=== PATIENT | male | born 1950 | race American Indian/Alaskan Native ===

== ENCOUNTER 2017-09-21 18:41 | Emergency (ER) | payer MEDICARE ==
[2017-09-21 18:42] VITALS: BMI 27.3
[2017-09-21 19:25] VITALS: BP 150/80; PULSE 80; RESP 18; TEMP 99.1; O2SAT 98
--- NOTE | 2017-09-21 19:29 | C.PDOC ---
History Of Present Illness Patient presents to the ER with a complaint of a dry cough and post nasal drip. Patient states he feels the same way he felt last year when he had bronchitis. Denies fever, chills, nausea, or vomiting. Time Seen by Provider: 09/21/17 19:28 Chief Complaint (Nursing): Cough, Cold, Congestion History Per: Patient History/Exam Limitations: no limitations Onset/Duration Of Symptoms: Days Location Of Pain: None Associated Symptoms: denies: Fever, Chills, Nausea, Vomiting Ear Symptoms: Bilateral: None Severity: Mild Pain Scale Rating Of: 2 Recent travel outside of the [place]: No Past Medical History Reviewed: Historical Data, Nursing Documentation, Vital Signs Vital Signs: Last Vital Signs Temp 99.1 F 09/21/17 19:21 Pulse 80 09/21/17 19:21 Resp 18 09/21/17 19:21 BP 150/80 09/21/17 19:21 Pulse Ox 98 09/21/17 19:47 - Medical History PMH: Bronchitis (2014), HTN (not on meds) Surgical History: Endoscopy Family History: States: No Known Family Hx - Social History Hx Tobacco Use: No Hx Alcohol Use: No Hx Substance Use: No - Immunization History Hx Tetanus Toxoid Vaccination: No Hx Influenza Vaccination: No Hx Pneumococcal Vaccination: No Review Of Systems Constitutional: Negative for: Fever, Chills ENT: Positive for: Other (Post nasal drip) Respiratory: Positive for: Cough. Negative for: Sputum Gastrointestinal: Negative for: Nausea, Vomiting Physical Exam - Physical Exam Appears: Non-toxic, No Acute Distress Skin: Warm, Dry Head: Normacephalic Ear(s): Bilateral: Normal Oral Mucosa: Moist Throat: No Erythema, No Exudate Chest: Symmetrical, No Tenderness Cardiovascular: Rhythm Regular Respiratory: No Rales, Rhonchi (Scattered), No Wheezing Gastrointestinal/Abdominal: Soft, No Tenderness Neurological/Psych: Oriented x3 ED Course And Treatment O2 Sat by Pulse Oximetry: 98 (Room air) Pulse Ox Interpretation: Normal Progress Note: Zithromax administered. Disposition Counseled Patient/Family Regarding: Studies Performed, Diagnosis - Disposition Referrals: Oracio Brewer MD, PhD [Primary Care Provider] - Disposition: HOME/ ROUTINE Disposition Time: 19:29 Condition: FAIR Prescriptions: Albuterol HFA [Ventolin HFA 90 mcg/actuation (8 g)] 2 puff IH [id number] #1 puff Azithromycin [Zithromax Tri-Ricky] 500 mg PO DAILY #3 tablet Instructions: Upper Respiratory Infection (ED) Forms: [email or web address] (Turkish) - Clinical Impression Clinical Impression: Upper respiratory infection - Scribe Statement The provider has reviewed the documentation as recorded by the Scribe Jesus Montalvo All medical record entries made by the Scribe were at my direction and personally dictated by me. I have reviewed the chart and agree that the record accurately reflects my personal performance of the history, physical exam, medical decision making, and the department course for this patient. I have also personally directed, reviewed, and agree with the discharge instructions and disposition.
== END 2017-09-21 20:00 | disposition home or self-care (01) ==
LOC: SUPCPDRO 18:41 → C.ER 18:41
DX: J06.9 Acute upper respiratory infection, unspecified (principal); I10 Essential (primary) hypertension

== ENCOUNTER 2017-10-13 09:14 | Emergency (ER) | payer MEDICARE ==
[2017-10-13 09:14] VITALS: BMI 27.3
[2017-10-13 09:26] VITALS: BP 132/72; PULSE 78; RESP 18; TEMP 98.3; O2SAT 99
--- NOTE | 2017-10-13 10:03 | C.PDOC ---
History Of Present Illness Pt c/o left periorbital swelling. Denies trauma. Time Seen by Provider: 10/13/17 09:28 Chief Complaint (Nursing): Eye Problem History Per: Patient Onset/Duration Of Symptoms: Days (3) Current Symptoms Are (Timing): Still Present Injury To Eye?: No Severity: Moderate Quality: Other (swelling) Associated Symptoms: Swelling, Discharge From Eye (watery). denies: Pain, Decreased Vision, FB Sensation Additional History Per: Prior Records Past Medical History Reviewed: Historical Data, Nursing Documentation, Vital Signs Vital Signs: Last Vital Signs Temp 98.3 F 10/13/17 09:23 Pulse 78 10/13/17 09:23 Resp 18 10/13/17 09:23 BP 132/72 10/13/17 09:23 Pulse Ox 99 10/13/17 09:23 - Medical History PMH: Bronchitis (2014), HTN (not on meds) Surgical History: Endoscopy Family History: States: Unknown Family Hx - Social History Hx Tobacco Use: No Hx Alcohol Use: No Hx Substance Use: No - Immunization History Hx Tetanus Toxoid Vaccination: No Hx Influenza Vaccination: No Hx Pneumococcal Vaccination: No Review Of Systems Except As Marked, All Systems Reviewed And Found Negative. Constitutional: Negative for: Fever, Weakness Eyes: Negative for: Pain, Vision Change, Conjunctivae Inflammation, Redness ENT: Negative for: Ear Pain, Nose Discharge, Nose Congestion, Throat Pain Cardiovascular: Negative for: Chest Pain Respiratory: Negative for: Cough Gastrointestinal: Negative for: Vomiting, Abdominal Pain Musculoskeletal: Negative for: Neck Pain Skin: Negative for: Rash Neurological: Negative for: Weakness, Numbness, Headache Physical Exam - Physical Exam Appears: Non-toxic, No Acute Distress Skin: Normal Color, Warm, Dry, No Rash Head: Atraumatic, Normacephalic Eye(s): bilateral: PERRL, EOMI, right: Normal Inspection, left: Other (mild holly -orbital edema) Neck: Normal ROM, Supple Lymphatic: No Adenopathy Extremity: Normal ROM Neurological/Psych: Oriented x3, Normal Speech, Normal Cognition, Normal Cranial Nerves, Normal Motor, Normal Sensation ED Course And Treatment O2 Sat by Pulse Oximetry: 99 Pulse Ox Interpretation: Normal Disposition Counseled Patient/Family Regarding: Diagnosis, Need For Followup, Rx Given - Disposition Referrals: Hans Funes [Staff Provider] - Disposition: HOME/ ROUTINE Disposition Time: 10:04 Condition: STABLE Additional Instructions: Follow up with an [employer]ic this week for further evaluation and treatment. Return to the ER if you develop fever, redness, pus drainage, change in vision, pain, worsening of symptoms or if you have any other concerns. Prescriptions: Olopatadine 0.1% Opht [Patanol 0.1% Opht Soln] 1 drop OP BID #1 bottle Forms: [facility] (Italian), General Discharge Instructions - Clinical Impression Clinical Impression: Periorbital edema of left eye
== END 2017-10-13 10:14 | disposition home or self-care (01) ==
LOC: C.ER 09:14
DX: H05.222 Edema of left orbit (principal)